=== PATIENT | male | born 1930 | race Caucasian/White ===

== ENCOUNTER 2019-05-02 20:51 | Inpatient (IN) | payer MEDICARE, OTHER ==
[~2019-05-02] VITALS: Ht 182.9 cm; Wt 70.3 kg
[2019-05-02] MEDS ORDERED: SENN-168 PO (21:13)
[2019-05-02] MEDS ORDERED: HYDR-4384 PO (21:13)
[2019-05-02] MEDS ORDERED: ACET325T53 PO (21:13)
[2019-05-02] MEDS ORDERED: ATOR80TA PO (21:13)
[2019-05-02] MEDS ORDERED: PANT20TA2 PO (21:13)
[2019-05-02] MEDS ORDERED: LACT1CAP57 PO (21:13)
[2019-05-02] MEDS ORDERED: CLOP75TA15 PO (21:13)
[2019-05-02] MEDS ORDERED: TAMS-3 PO (21:13)
[2019-05-02] MEDS ORDERED: METO25TA6 PO (21:13)
[2019-05-02] MEDS ORDERED: MAGN400O6 PO (21:13)
[2019-05-02] MEDS ORDERED: DOCU100C36 PO (21:13)
[2019-05-02] MEDS ORDERED: FINA5TAB3 PO (21:13)
[2019-05-02] MEDS ORDERED: MULT-1215 PO (21:13)
[2019-05-02] MEDS ORDERED: LIDOCAINE 2% (UROJET) 10 ML JELLY MM ONE ×2 (21:15→21:16)
[2019-05-02 21:37] LABS: BASOPHILS # (AUTO) 0.1 K/uL (0.0-8.0); BASOPHILS % (AUTO) 0.9 % (0.0-2.0); EOSINOPHILS # (AUTO) 0.3 K/uL (0.0-0.7); HEMATOCRIT 37.5 % (36.7-47.1); HEMOGLOBIN 12.7 g/dL (12.5-16.3); LYMPHOCYTES # (AUTO) 1.2 K/uL (20.0-40.0); LYMPHOCYTES % (AUTO) 17.4 % (20.5-51.5); MEAN CORPUSCULAR HEMOGLOBIN 28.9 uug (23.8-33.4); MEAN CORPUSCULAR HGB CONC 34 g/dL (32.5-36.3); MEAN CORPUSCULAR VOLUME 85.5 fL (73.0-96.2); MONOCYTES # (AUTO) 0.7 K/uL (2.0-10.0); MONOCYTES % (AUTO) 9.4 % (0.0-11.0); NEUTROPHILS # (AUTO) 4.7 K/uL (1.8-8.9); NEUTROPHILS % (AUTO) 67.3 % (38.5-71.5); PLATELET COUNT (AUTO) 305 K/uL (152-348); RED BLOOD CELL COUNT(AUTO) 4.39 MIL/uL (4.06-5.63)
--- NOTE | 2019-05-02 21:45 | NUR ---
unable to insert muñoz cath urology consult done: DR QUINONEZ on the phone with ERMTammy MONTE
[2019-05-02 21:46] LABS: CREATININE 0.8 mg/dL (0.6-1.3); POTASSIUM 3.6 mmol/L (3.5-5.1)
[2019-05-02] MEDS ORDERED: HYDROMORPHONE 1 MG/1 ML DISP.SYRIN ONE (21:51)
[2019-05-02] MEDS ORDERED: ONDANSETRON 4 MG/2 ML VIAL ONE (21:51)
[2019-05-02 21:52] LABS: BILIRUBIN,DIRECT 0.1 mg/dL (0.0-0.2); BILIRUBIN,TOTAL 0.3 mg/dL (0.2-1.0); TOTAL PROTEIN, SERUM 6.9 g/dL (6.4-8.2)
[2019-05-02] MEDS ORDERED: ONDANSETRON 4 MG/2 ML VIAL IV ONE (22:00)
[2019-05-02] MEDS ORDERED: HYDROMORPHONE 1 MG/1 ML DISP.SYRIN IV ONE (22:00)
--- NOTE | 2019-05-02 22:01 | NUR ---
BLADDER SCANNER : [id number]
--- NOTE | 2019-05-02 22:08 | NUR ---
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
--- NOTE | 2019-05-02 22:09 | NUR ---
BELONGINGS LIST SIGNED AND ACCOUNTED FOR
--- NOTE | 2019-05-02 22:13 | NUR ---
M/S UNDER Michi ARMANDO DX: URINARY RETENTION +UROLOGY CONSULT: CRISTIANO
--- NOTE | 2019-05-02 22:20 | NUR ---
report given to yanci HAYDEN (M/s)
--- NOTE | 2019-05-02 22:21 | NUR ---
to update cousin: JEANINE NAIK [phone]
[2019-05-02] MEDS ORDERED: ONDANSETRON 4 MG/2 ML VIAL IV PRN (22:30)
[2019-05-02] MEDS ORDERED: ACETAMINOPHEN 325 MG TABLET PO PRN ×3 (22:30)
[2019-05-02] MEDS ORDERED: Z GUARD REMEDY PASTE 57 GM TUBE TOP PRN (22:30)
[2019-05-02] MEDS ORDERED: MAGNESIUM HYDROXIDE 30 ML LIQUID UDC PO PRN ×2 (22:30)
[2019-05-02] MEDS ORDERED: HYDROCODONE/APAP 5-325MG TABLET PO PRN (22:30)
--- NOTE | 2019-05-02 22:30 | NUR ---
CRISTIANO AT BEDSIDE
--- NOTE | 2019-05-02 22:40 | NUR ---
ABLE TO COLLECT URINE SAMPLE AFTER PROCEDURE
[2019-05-02 22:53] LABS: *BILIRUBIN,URIN NEGATIVE (NEGATIVE); *BLOOD, URINE 2+ (NEGATIVE); *CLARITY,URINE SLIGHTLY CLOUDY (CLEAR); *COLOR,URINE YELLOW (YELLOW); *KETONES,URINE NEGATIVE (NEGATIVE); *UROBILINOGEN,URINE 0.2 E.U./dl (NORMAL); LEUKOCYTE ESTERASE ,URINE 3+ (NEGATIVE); NITRITE, URINE NEGATIVE (NEGATIVE); UGLUCOSE NEGATIVE (NEGATIVE)
--- NOTE | 2019-05-02 23:00 | NUR ---
TRANSPORT TO M/S VIA [facility]
[2019-05-02 23:03] LABS: BACTERIA,URINE MANY /HPF (NONE SEEN); MUCUS,URINE FEW /LPF (0-FEW); SQUAMOUS EPITHELIAL CELL,UR FEW /HPF (NONE SEEN); WBC,URINE 80-100 /HPF (0-3)
[2019-05-03] MEDS: IV NS 1000 ML 1,000 ML IV PRN ×2 (00:30→23:07)
[2019-05-03] MEDS: PANTOPRAZOLE SODIUM 40 MG TABLET.DR PO SCH (06:13)
--- NOTE | 2019-05-03 06:23 | NUR ---
patient received lying in bed. no signs of acute distress and v/s stable. safety and comfort measures provided. bed in lowest position, side rails upx2, bed alarm on. all medications administered and tolerated well. bisacodyl suppository given for constipation. tolerated well. will continue to monitor and endorse care accordingly.
[2019-05-03 06:28] LABS: BASOPHILS # (AUTO) 0.1 K/uL (0.0-8.0); BASOPHILS % (AUTO) 0.7 % (0.0-2.0); EOSINOPHILS # (AUTO) 0.4 K/uL (0.0-0.7); EOSINOPHILS % (AUTO) 5.5 % (0.0-7.0); HEMOGLOBIN 12.6 g/dL (12.5-16.3); LYMPHOCYTES # (AUTO) 0.9 K/uL (20.0-40.0); LYMPHOCYTES % (AUTO) 12.5 % (20.5-51.5); MEAN CORPUSCULAR HEMOGLOBIN 29.2 uug (23.8-33.4); MEAN CORPUSCULAR HGB CONC 33 g/dL (32.5-36.3); MEAN CORPUSCULAR VOLUME 88.2 fL (73.0-96.2); MONOCYTES # (AUTO) 0.6 K/uL (2.0-10.0); MONOCYTES % (AUTO) 8.7 % (0.0-11.0); NEUTROPHILS # (AUTO) 5.4 K/uL (1.8-8.9); NEUTROPHILS % (AUTO) 72.6 % (38.5-71.5); PLATELET COUNT (AUTO) 281 K/uL (152-348); WHITE BLOOD COUNT (AUTO) 7.4 K/uL (3.6-10.2)
[2019-05-03 06:41] LABS: CREATININE 0.7 mg/dL (0.6-1.3); MAGNESIUM 1.9 mg/dL (1.8-2.4); POTASSIUM 3.7 mmol/L (3.5-5.1)
[2019-05-03 07:34] LABS: THYROID STIMULATING HORMONE 2.242 mIU/mL (0.358-3.740)
[2019-05-03] MEDS: CULTURELLE CAPSULE PO SCH ×2 (08:17→16:42)
[2019-05-03] MEDS: CLOPIDOGREL 75 MG TABLET PO SCH (08:17)
[2019-05-03] MEDS: ENOXAPARIN SODIUM 40 MG/0.4 ML DISP.SYRIN SQ SCH (08:17)
[2019-05-03] MEDS: DOCUSATE SODIUM 100 MG CAPSULE PO SCH ×2 (08:18→16:42)
[2019-05-03] MEDS: FINASTERIDE 5 MG TABLET PO SCH (08:18)
[2019-05-03] MEDS ORDERED: NITROFURANTOIN/NITROFURAN MAC 100 MG CAPSULE PO SCH (09:00)
[2019-05-03] MEDS ORDERED: METOPROLOL TARTRATE 25 MG TABLET PO SCH (09:00)
--- NOTE | 2019-05-03 09:10 | NUR ---
patient took all ordered medications and tolerated well . also seen by Physical therapy and able to walk down the hallway with no complications
[2019-05-03 11:31] VITALS: BP 106/59
[2019-05-03] MEDS: METOPROLOL TARTRATE 25 MG TABLET PO SCH (11:44)
[2019-05-03 15:47] VITALS: BP 102/51
[2019-05-03] MEDS: CEFTRIAXONE 1 G in IV DEXTROSE 5% 50 ML IV SCH (17:45)
--- NOTE | 2019-05-03 18:09 | NUR ---
patient in bed with HOB elevated watching TV, no c/o pain noted and no sob noted, kept clean and dry at all times. IV intact and patent with IV fluid running at 50 ml/hr with NS. safety and comfort provided. bed in low position, side rails up x2 and bed alarm. will continue to monitor.
--- NOTE | 2019-05-03 19:20 | NUR ---
Received patient lying in bed. AAOx4. In no acute distress. Denies any pain or SOB. IV site on left FA intact and patent. IVF infusing. V Pacing on tele at 64/min. Black catheter intact and draining via gravity. Safety measure initiated and call patrick within reached.
[2019-05-03 19:35] VITALS: BP 104/54
[2019-05-03] MEDS: SENNOSIDES 1 TABLET PO SCH (20:32)
[2019-05-03] MEDS: ATORVASTATIN 40 MG TABLET PO SCH (20:32)
[2019-05-03] MEDS: TAMSULOSIN HCL 0.4 MG CAP.SR.24H PO SCH (20:32)
[2019-05-03] MEDS ORDERED: Medication Not On Formulary EA (Atorvastatin Calcium (Lipitor) 80 MG) PO SCH (21:00)
[2019-05-04 00:10] VITALS: BP 101/56
[2019-05-04 04:03] VITALS: BP 105/54
--- NOTE | 2019-05-04 06:10 | NUR ---
AAOx4. Denies any pain or SOB. IV site on left FA intact and patent. IVF infusing. AV Pacing with PVC's on tele at 77/min. Black catheter intact and draining via gravity. Safety measure maintained and call patrick within reached.
[2019-05-04] MEDS: PANTOPRAZOLE SODIUM 40 MG TABLET.DR PO SCH (06:14)
[2019-05-04 06:36] LABS: BASOPHILS # (AUTO) 0.1 K/uL (0.0-8.0); BASOPHILS % (AUTO) 0.8 % (0.0-2.0); EOSINOPHILS # (AUTO) 0.3 K/uL (0.0-0.7); EOSINOPHILS % (AUTO) 4.2 % (0.0-7.0); HEMATOCRIT 36.4 % (36.7-47.1); HEMOGLOBIN 12.4 g/dL (12.5-16.3); LYMPHOCYTES # (AUTO) 0.7 K/uL (20.0-40.0); MEAN CORPUSCULAR HEMOGLOBIN 29.3 uug (23.8-33.4); MEAN CORPUSCULAR HGB CONC 34 g/dL (32.5-36.3); MEAN CORPUSCULAR VOLUME 86.2 fL (73.0-96.2); MONOCYTES # (AUTO) 0.7 K/uL (2.0-10.0); MONOCYTES % (AUTO) 8.6 % (0.0-11.0); NEUTROPHILS # (AUTO) 6.1 K/uL (1.8-8.9); NEUTROPHILS % (AUTO) 77.4 % (38.5-71.5); PLATELET COUNT (AUTO) 271 K/uL (152-348); RED BLOOD CELL COUNT(AUTO) 4.23 MIL/uL (4.06-5.63); WHITE BLOOD COUNT (AUTO) 7.8 K/uL (3.6-10.2)
[2019-05-04 06:56] LABS: CREATININE 0.8 mg/dL (0.6-1.3); PHOSPHOROUS 3.6 mg/dL (2.5-4.9)
--- NOTE | 2019-05-04 07:30 | NUR ---
Patient calm and comfortable with no signs of distress and stable vital signs; patient will continue to be monitored
[2019-05-04] MEDS: CULTURELLE CAPSULE PO SCH ×2 (08:29→18:05)
[2019-05-04] MEDS: CLOPIDOGREL 75 MG TABLET PO SCH (08:33)
[2019-05-04] MEDS: FINASTERIDE 5 MG TABLET PO SCH (08:33)
[2019-05-04] MEDS: DOCUSATE SODIUM 100 MG CAPSULE PO SCH ×2 (08:33→18:05)
[2019-05-04] MEDS: METOPROLOL TARTRATE 25 MG TABLET PO SCH (08:39)
[2019-05-04] MEDS: ENOXAPARIN SODIUM 40 MG/0.4 ML DISP.SYRIN SQ SCH (08:45)
[2019-05-04 12:02] VITALS: BP 99/50
[2019-05-04 15:19] VITALS: BP 96/53
[2019-05-04] MEDS: CEFTRIAXONE 1 G in IV DEXTROSE 5% 50 ML IV SCH (18:05)
--- NOTE | 2019-05-04 19:04 | NUR ---
Patient calm and cooperative through out shift with stable vital signs; patient medication complaint; patient anox4 ; patient with no complaints of pain or discomfort.
[2019-05-04 19:46] VITALS: BP 106/59
--- NOTE | 2019-05-04 20:00 | NUR ---
Patient received into care, laying in bed, resting comfortably, watching television. Patient is alert/oriented x3 and has no complaints of pain or discomfort at this time. All safety and fall precaution measures are in place. Call light and personal items are within reach at all times. Will continue to monitor and assess.
[2019-05-04] MEDS: ATORVASTATIN 40 MG TABLET PO SCH (20:39)
[2019-05-04] MEDS: SENNOSIDES 1 TABLET PO SCH (20:39)
[2019-05-04] MEDS: TAMSULOSIN HCL 0.4 MG CAP.SR.24H PO SCH (20:39)
[2019-05-04] MEDS: IV NS 1000 ML 1,000 ML IV PRN (20:43)
[2019-05-05 05:17] VITALS: BP 132/63
--- NOTE | 2019-05-05 06:00 | NUR ---
Patient slept comfortably throughout night with no complaints of pain or discomfort noted or observed by nurse or verbalized by patient. All prescribed medications given as ordered and tolerated well by patient with no adverse sided effects verbalized by patient or noted or observed by nurse. All safety and fall precautions remain in place. Call light and personal items remain within reach at all times.
[2019-05-05] MEDS: PANTOPRAZOLE SODIUM 40 MG TABLET.DR PO SCH (06:05)
[2019-05-05 06:38] LABS: BASOPHILS # (AUTO) 0.1 K/uL (0.0-8.0); BASOPHILS % (AUTO) 0.7 % (0.0-2.0); EOSINOPHILS # (AUTO) 0.4 K/uL (0.0-0.7); EOSINOPHILS % (AUTO) 4.8 % (0.0-7.0); HEMATOCRIT 35.6 % (36.7-47.1); LYMPHOCYTES # (AUTO) 0.8 K/uL (20.0-40.0); LYMPHOCYTES % (AUTO) 9.6 % (20.5-51.5); MEAN CORPUSCULAR HEMOGLOBIN 28.8 uug (23.8-33.4); MEAN CORPUSCULAR HGB CONC 34 g/dL (32.5-36.3); MEAN CORPUSCULAR VOLUME 85.8 fL (73.0-96.2); MONOCYTES # (AUTO) 0.9 K/uL (2.0-10.0); MONOCYTES % (AUTO) 10.3 % (0.0-11.0); NEUTROPHILS # (AUTO) 6.6 K/uL (1.8-8.9); NEUTROPHILS % (AUTO) 74.6 % (38.5-71.5); PLATELET COUNT (AUTO) 265 K/uL (152-348); RED BLOOD CELL COUNT(AUTO) 4.15 MIL/uL (4.06-5.63); WHITE BLOOD COUNT (AUTO) 8.9 K/uL (3.6-10.2)
[2019-05-05 06:53] LABS: CREATININE 0.7 mg/dL (0.6-1.3); MAGNESIUM 1.9 mg/dL (1.8-2.4); PHOSPHOROUS 3.3 mg/dL (2.5-4.9); POTASSIUM 3.8 mmol/L (3.5-5.1)
[2019-05-05] MEDS: CLOPIDOGREL 75 MG TABLET PO SCH (09:30)
[2019-05-05] MEDS: DOCUSATE SODIUM 100 MG CAPSULE PO SCH ×2 (09:30→18:37)
[2019-05-05] MEDS: CULTURELLE CAPSULE PO SCH ×2 (09:30→18:37)
[2019-05-05] MEDS: METOPROLOL TARTRATE 25 MG TABLET PO SCH (09:30)
[2019-05-05] MEDS: FINASTERIDE 5 MG TABLET PO SCH (09:31)
[2019-05-05] MEDS: ENOXAPARIN SODIUM 40 MG/0.4 ML DISP.SYRIN SQ SCH (09:32)
[2019-05-05 11:10] VITALS: BP 115/58
[2019-05-05] MEDS ORDERED: MERO500V21 IV (12:23)
[2019-05-05] MEDS ORDERED: MEROPENEM 1 G in IV NORMAL SALINE 100 ML IV SCH (14:00)
[2019-05-05 15:07] VITALS: BP 106/50
--- NOTE | 2019-05-05 19:25 | NUR ---
mid-line inserted right upper arm. wanda patent report. called to Laney at [facility] transferred via ambulance.
== END 2019-05-05 22:05 | DRG 697 ==
LOC: ER 20:51 → MEDSURG3 22:28 → TELE3 05-03 01:54 → MEDSURG3 05-04 10:05
PROVIDERS: ADMIT Registered Nurse; ATTEND Registered Nurse
PROC: 0T9B70Z Drainage of Bladder with Drainage Device, Via Natural or Artificial Opening (ICD-10-PCS; principal; 2019-05-02)
PROC: 0T7D7ZZ Dilation of Urethra, Via Natural or Artificial Opening (ICD-10-PCS; principal; 2019-05-02)
DX: N35.919 Unspecified urethral stricture, male, unspecified site (principal); N13.30 Unspecified hydronephrosis; N40.1 Benign prostatic hyperplasia with lower urinary tract symptoms; N47.1 Phimosis; R33.8 Other retention of urine; N50.9 Disorder of male genital organs, unspecified; Z95.0 Presence of cardiac pacemaker; E78.5 Hyperlipidemia, unspecified; K22.70 Barrett's esophagus without dysplasia; R13.10 Dysphagia, unspecified; N43.3 Hydrocele, unspecified; I25.10 Atherosclerotic heart disease of native coronary artery without angina pectoris; I10 Essential (primary) hypertension; Z79.02 Long term (current) use of antithrombotics/antiplatelets; Z79.899 Other long term (current) drug therapy; I49.3 Ventricular premature depolarization; N50.3 Cyst of epididymis; R11.10 Vomiting, unspecified; N13.9 Obstructive and reflux uropathy, unspecified
CPT/HCPCS: 36415; 70030-TC; 76870; 83690; 83735; 84100; 84443; 85025; 87077; 87086; 93005; A4663; G0378; J0696; J1170; J1650; J2185; J2405; J3490; J7030; J7060